=== PATIENT | male | born 1945 | race Caucasian/White ===

== ENCOUNTER → 2016-06-25 10:15 | Outpatient (CLI) | payer MEDICARE ==
[~2016-06-25 10:15] MED LIST: ADVIL200 MG PO; ASPIRIN81 MG PO; CARDIZEM CD240 MG PO; CLARITIN-D1 TAB.SR . PO; PLAVIX75 MG PO
[2016-07-04 09:34] VITALS: BMI 25.1
== END | disposition home or self-care (01) ==
LOC: D.CT 10:15
DX: I65.29 Occlusion and stenosis of unspecified carotid artery (principal)

== ENCOUNTER 2016-07-02 05:00 | Inpatient (IN) | payer MEDICARE ==
[2016-07-01 16:22] LABS: HEMATOCRIT 40.8 % (42.0-54.0); HEMOGLOBIN 14.1 g/dL (13.5-17.5); MCH 31.6 pg (26.0-34.0); MCHC 34.6 g/dL (31.0-37.0); MCV 91.5 fL (80.0-100.0); MEAN PLATELET VOLUME 9.9 fL (7.4-10.4); RBC 4.46 10x6/uL (4.20-6.10); RDW 13.6 % (11.5-14.5); WBC 8.5 10x3/uL (4.8-10.8)
[2016-07-01 16:31] LABS: APTT 29.6 SECONDS (22.8-39.4); INR 1.02 (0.85-1.17); PROTIME 13.2 SECONDS (11.6-15.0)
[2016-07-01 16:37] LABS: APPEARANCE CLEAR (CLEAR); BILIRUBIN NEGATIVE (NEGATIVE); COLOR YELLOW (YELLOW); GLUCOSE NEGATIVE (NEGATIVE); KETONE NEGATIVE (NEGATIVE); LEUKOCYTE ESTERASE NEGATIVE (NEGATIVE); NITRITE NEGATIVE (NEGATIVE); PROTEIN NEGATIVE (NEGATIVE); UROBILINOGEN NORMAL (NORMAL)
[2016-07-01 16:42] LABS: ALBUMIN 3.9 g/dL (3.4-5.0); ANION GAP 8.9 mmol/L (8-16); BILIRUBIN - TOTAL 0.39 mg/dL (0.2-1.3); CALCIUM 9.2 mg/dL (8.5-10.1); CARBON DIOXIDE 31.6 mmol/L (21.0-32.0); CREATININE - SERUM 1.2 mg/dL (0.6-1.3); POTASSIUM - SERUM 3.5 mmol/L (3.5-5.1); PROTEIN - SERUM 7.2 g/dL (6.4-8.2)
[2016-07-02] VITALS (54 sets, daily range): BP systolic 118–187; BP diastolic 52–94; BMI 20.2; BMI 25.1
[~2016-07-02] VITALS: Ht 180.3 cm; Wt 81.6 kg
[~2016-07-02 05:00] MED LIST changes: -ASPIRIN81 MG PO; -CARDIZEM CD240 MG PO; -PLAVIX75 MG PO
--- NOTE | 2016-07-02 14:30 | NUR ---
Is the patient Alert and Oriented? Yes 0 * How many steps to enter\exit or inside your home? 7 0 * PCP DR. MCFARLAND 0 * Pharmacy [facility] IN [place] 0 * Preadmission Environment Home with Family 0 * ADLs Independent 0 * Equipment None 0 * List name and contact numbers for known caregivers / representatives who currently or will assist patient after discharge: SPOUSE: BELLA [phone] 0 * Community resources currently utilized None 0 * Additional services required to return to the preadmission environment? No 0 * Can the patient safely return to the preadmission environment? Yes 0 * Has this patient been hospitalized within the prior 30 days at any hospital? No PATIENT IS AWAKE AND ALERT. HE STATES HE LIVES AT HOME WITH HIS , BELLA. HE STATES SHE WILL BE AVAILABLE TO DRIVE HIM HOME AT DISCHARGE. PATIENT STATES HIS PCP IS DR. MCFARLAND. HE GETS HIS MEDS FROM [facility] IN [place]. HE DENIES USE OF ANY EQUIPMENT AND DENEIS EVER HAVING HOME HEALTH. THERE ARE 7 STEPS TO ENTER HIS HOME. NO DISCHARGE NEEDS IDENTIFIED AT THIS TIME.
--- NOTE | 2016-07-02 19:00 | NUR ---
REPORT RECIEVED, SHIFT ASSESSMENT COMPLETE, PT IS ALERT AND ORIENTED, ON 4L NC WITH 975 O2 SAT. LUNGS CLEAR IN ALL LOBES, S1S2, CM-NSR, INCISION TO RIGHT NECK DRSG IS CDI, AMILCAR DRAIN TO RIGHT CHEST WITH BLOODY DRAINAGE, DRSG CDI, PATENT LEFT SC CVL...SEE FLOW SHEET...PATENT RIGHT LIN, GOOD WAVEFORM, EXTREMETY IS PINK AND WARM , ABDOMEN IS SOFT AND ROUND WITH ACTIVE BS, PATENT F/C WITH YELLOW UOP, NO EDEMA NOTED, ALL PPP, CALL LIGHT IN REACH
--- NOTE | 2016-07-02 21:10 | NUR ---
NO VISITORS AT THIS TIME, PT RESTING COMFORTABLY, WILL CON'T TO MONITOR
--- NOTE | 2016-07-02 23:18 | NUR ---
PT C/O OF 12/08 PAIN AT THIS TIME, ORDERED PAIN MED GIVEN
[2016-07-03] VITALS (85 sets, daily range): BP systolic 123–155; BP diastolic 40–86
--- NOTE | 2016-07-03 01:08 | NUR ---
PT RESTING AT THIS TIME, WILL CON'T TO MONITOR
--- NOTE | 2016-07-03 03:10 | NUR ---
REASSESSMENT COMPLETE, NO CHANGES NOTED, PT AWAKE AT THIS TIME, DENIES ANY NEEDS, WILL CON'T TO MONITOR
--- NOTE | 2016-07-03 05:35 | NUR ---
JANUSZ AT BEDSIDE, AMILCAR DRAIN PULLED. PT TOLERATED WELL
--- NOTE | 2016-07-03 07:00 | NUR ---
REC'D CARE OF PT. A&O X3.
--- NOTE | 2016-07-03 07:24 | NUR ---
INITAIL ASESSMENT COMPLETED PER FLOW SHEET. RIGHT CAROTID INCISION. DRSG CD&I. RIGHT UPPER CHEST DC'D AMILCAR DRAIN SITE. DRSG CD&I. RIGHT RADAIL LIN. LEVELED AND ZEROED. LEFT SCDL WITH CARDIZEM AND CLEVEPREX BOTH BEING TITRATED TO EFFECT. PLASMALYTE AND ZINACEF ALSO INFUSING. NO S/S OF INFECTION. LEFT EYE INPLANT. CRITICORE YAHAIRA. PATENT. SCD'S. MACK. PPP.CLWR. CPOC.
--- NOTE | 2016-07-03 07:43 | NUR ---
HR 57. DECREASED CARDIZEM TO 5 CC PER HOUR.
--- NOTE | 2016-07-03 08:41 | NUR ---
DR. AGUDELO AT BEDSIDE.
--- NOTE | 2016-07-03 09:00 | NUR ---
FAMILY AT BEDSIDE. UPDATED.
--- NOTE | 2016-07-03 09:39 | NUR ---
HR 57. MIMI MANZANO.
--- NOTE | 2016-07-03 10:00 | NUR ---
DC'Doris CEBALLOS WITH TIP INTACT.
--- NOTE | 2016-07-03 10:05 | NUR ---
NO S/S OF BLEEDING AT DC'D LIN SITE.
--- NOTE | 2016-07-03 10:18 | NUR ---
YAHAIRA MATHIS'D FROM BLADDER.
--- NOTE | 2016-07-03 11:01 | NUR ---
AMBULATED WITH PT AND BACK TO CHAIR.
--- NOTE | 2016-07-03 11:11 | NUR ---
REMAINS UP IN CHAIR DENIES NEEDS.
--- NOTE | 2016-07-03 12:40 | NUR ---
BACK TO BED INDEPENDENTLY. REMINDED HIM TO CALL ME BEFORE GETTING OOB.
--- NOTE | 2016-07-03 12:55 | NUR ---
NO CHANGES IN NEURO ASSESSMENTS.
--- NOTE | 2016-07-03 13:25 | NUR ---
AMBULATED 350 FEET AND BACK TO BED VIA CAMRYN WITH PT
--- NOTE | 2016-07-03 15:11 | NUR ---
FAMILY AT BEDSIDE. UPDATED.
--- NOTE | 2016-07-03 18:00 | NUR ---
NO VISITORS. DENIES NEEDS. NO NEURO CHANGES.
--- NOTE | 2016-07-03 19:15 | NUR ---
REPORT RECIEVED, SHIFT ASSESSMENT COMPLETE, PT IS ALERT AND ORIENTED, ON RA WITH 95% O2 SAT. LUNGS CLEAR IN ALL LOBES, S1S2, CM-NSR, PATENT LEFT SC CVL..SEE FLOW SHEET, DRSGS TO LEFT NECK AND LEFT CHEST ARE CDI, ABDOMEN IS FLAT WITH ACTIVE BS, URINAL AND BSC AT BEDSIDE, ALL PPP, WILL CON'T TO MONITOR
--- NOTE | 2016-07-03 21:20 | NUR ---
NO VISITORS AT THIS TIME, WILL CON'T TO MONITOR
--- NOTE | 2016-07-03 23:09 | NUR ---
REASSESSMENT COMPLETE, NO CHANGES NOTED, PT RESTING AT THIS TIME, NO NEEDS NOTED, WILL CON'T TO MONITOR
[2016-07-04] VITALS (53 sets, daily range): BP systolic 134–156; BP diastolic 52–92; Ht 180.3 cm; Wt 81.6 kg
--- NOTE | 2016-07-04 03:12 | NUR ---
REASSESSMENT COMPLETE, NO CHANGES NOTED, PT RESTING AT THIS TIME, WILL CON'T TO MONITOR
--- NOTE | 2016-07-04 05:15 | NUR ---
PT RESTING AT THIS TIME, WILL CON'T TO MONITOR
--- NOTE | 2016-07-04 07:00 | NUR ---
ASSESSMENT COMPLETE PER FLOWSHEET.
--- NOTE | 2016-07-04 15:00 | NUR ---
DR AGUDELO HERE SUHA MARCIAL. WILL CONTINUE TO MONITOR BP.
--- NOTE | 2016-07-04 15:43 | NUR ---
DISCHARGE DONE. NO QUESTIONS NOTED PER . INSTRUCTIONS GIVEN PER BELLA DWYER NURSE ABOUT DRIVING AND INCISION CARE. [facility] [address] PER BELLA.
[2016-07-04] MEDS ORDERED: CARDIZEM CD240 MG PO (16:31)
[2016-07-04] MEDS ORDERED: PLAVIX75 MG PO (16:31)
[2016-07-04] MEDS ORDERED: ASPIRIN81 MG PO (16:32)
--- NOTE | 2016-07-05 13:50 | OP ---
PATIENT NAME: DOLLY DAUGHERTY MEDICAL RECORD: [id number] :47 LOCATION:[facility] D.2305 ADMISSION DATE:07/02/16 SURGEON: SIMONE AGUDELO MD DATE OF OPERATION: 07/02/2016 SURGEON: Simone Agudelo MD ANESTHESIA: General endotracheal, Dr. Blue. OPERATION PERFORMED: Right carotid endarterectomy with patch angioplasty. PREOPERATIVE DIAGNOSIS: Severe right internal carotid artery stenosis. POSTOPERATIVE DIAGNOSIS: Severe right internal carotid artery stenosis. INDICATION FOR OPERATION: Severe right internal carotid artery stenosis. FINDINGS AT OPERATION: Severe right internal carotid artery stenosis area greater than 90% and there were no EEG changes with clamping or unclamping of the carotid artery. ESTIMATED BLOOD LOSS: Less than 50 mL. DESCRIPTION OF PROCEDURE: After informed consent, adequate preoperative medication and evaluation, the patient was brought to the operating room, placed on the table in the supine position. After induction of general endotracheal anesthesia and application of appropriate monitoring devices, the right neck and chest prepped and draped in a sterile field, utilizing Betadine scrub, alcohol, and Betadine solution. A Betadine-impregnated drape was also used. An oblique incision was made in the skin crease. Dissection carried down the fascia. Hemostasis was maintained with electrocautery. Facial vein was identified and divided. Utilizing sharp dissection, the common carotid, internal and external carotid arteries were dissected free from surrounding structures, protecting the neurological structures. The patient was given a calculated dose of heparin, after 3 minutes, clamps were applied. After 2 minutes, no EEG changes. The arteriotomy was made and extended with Bergeron scissors. Artery underwent endarterectomy sharply. Artery underwent extensive debridement and irrigation. Utilizing a CorMatrix vascular patch and running 7-0 Prolene suture, the arteriotomy was closed with patch angioplasty technique. All maneuvers to remove trapped air were performed. The clamps were removed sequentially. There were no EEG changes. The patient was given a calculated dose of protamine to reverse the heparin. Hemostasis was achieved, and a #7 Gautam-Nevarez drain was left in the depths of wound and brought through the base of the neck. Neck was again irrigated. Instrument count and sponge count were correct times 2. Neck was closed in layers utilizing 3-0 Vicryl on the platysma, 5-0 subcuticular Monocryl on the skin. Sterile dressings were applied. The patient tolerated the procedure well and transferred to ICU in stable condition. TRANSINT:[id number] Voice Confirmation ID: [id number] DOCUMENT ID: [id number] OPERATIVE REPORT [id number] DOLLY DAUGHERTY EDWARD MD at 1350 CC: [id number] DICTATION DATE: 07/02/16 1004 BRANCH OFFICE ADMINISTRATOR: 07/02/16 1350 DIS IN 07/04/16 [place] [id number]
--- NOTE | 2016-07-05 13:50 | HP ---
PATIENT: DOLLY DAUGHERTY MEDICAL RECORD: [id number] ACCOUNT: [id number] LOCATION:[facility] D2305 : [birth year] ADMISSION DATE: 07/02/16 HISTORY AND PHYSICAL EXAMINATION NameDOLLY DAUGHERTY (70yo, M) ID# [id number]. Date/Time07/01/2016 01:56VFKEN16 1945Service Dept.NPP_[facility] ClinicProviderEDKELTON NARVAEZ MDInsuranceMed Primary: [place]ICARE-[place] (MEDICARE) Insurance # : [id number] Employer Name : RETIRED Prescription: ORX - Member is eligible. Chief Complaint Carotid stenosis CTA neck Vitals BP:160/80 sitting R arm 07/01/2016 12:41 pm 180/90 sitting L arm 07/01/2016 12:41 pmHR:88irreg 07/01/2016 12:43 pmHt:5 ft 11 in 07/01/2016 12:41 pmWt:145 lbs 07/01/2016 12:41 pmBMI:20.2 07/01/2016 12:41 pmAllergies Reviewed Allergies CODEINEMedications Reviewed Medications Claritin-D 12 Hour 5 mg-120 mg tablet,extended release TAKE 1 TABLET BY MOUTH EVERY 12 HOURS QWJJSO48/12/17 filledsurescriptssulfamethoxazole 800 mg-trimethoprim 160 mg tablet TAKE 1 TABLET BY MOUTH EVERY 12 HOURS FOR 10 DAYS07/20/15 filledPRESCRIPTION SOLUTIONSProblems Reviewed Problems Carotid artery stenosis - Onset: 07/01/2016 Family History Discussed Family History Social History Discussed Social History Cardiology Smoking Status: Current every day smoker Smoker (1/2 PPD) High Cholesterol: Y High blood pressure: N Diabetes: N Surgical History Reviewed Surgical History Other - Right rotator cuff Other - Right hand carpal tunnel Other - heria repair bilateral inguinal Other - bilateral retinal detachment PROTHESIS left ey Other - appendectomy Past Medical History Discussed Past Medical History Blurred Vision: Y - PROTHESIS left eye Carotid Stenosis: Y Documents for Discussion N/A HISTORY AND PHYSICAL [id number] DOLLY DAUGHERTY Screening None recorded. HPI Cerebral Vascular Disease Reported by patient. Quality: weakness; numbess ("both legs cramp."); tingling; dizziness Alleviating Factors: position change severe bilateral carotid artery stenosis ROS Patient reports exercise intolerance but reports no fever, no night sweats, no significant weight gain, and no significant weight loss. He reports no dry eyes, no irritation, and no vision change; blind 0s. He reports dizziness but reports no loss of consciousness, no weakness, no numbness, no seizures, and no headaches. He reports no difficulty hearing and no ear pain. He rep orts no frequent nosebleeds and no nose/sinus problems. He reports no sore throat, no bleeding gums, no snoring, no dry mouth, no mouth ulcers, no oral abnormalities, and no teeth problems. He reports no jugular vein distension and no swollen glands. He r e ports no chest pain, no arm pain on exertion, no shortness of breath when walking, no shortness of breath when lying down, no palpitations, and no known heart murmur. He reports no cough, no wheezing, no shortness of breath, and no coughing up blood. He r e ports no abdominal pain, no vomiting, normal appetite, no diarrhea, not vomiting blood, no nausea, and no constipation. He reports no incontinence, no difficulty urinating, no hematuria, and no increased frequency. He reports no muscle aches, no muscle we a kness, no arthralgias/joint pain, no back pain, and no swelling in the extremities. He reports no abnormal mole, no jaundice, and no rashes. He reports no depression, no sleep disturbances, feeling safe in relationship, and no alcohol abuse. He reports no fatigue. He reports no swollen glands and no bruising. He reports no runny nose, no sinus pressure, no itching, no hives, and no frequent sneezing. ROS as noted in the HPI Physical Exam Patient is a 70-year-old male. Constitutional: General Appearance healthy-appearing and thin. Level of Distress NAD. Ambulation ambulating normally. Cardiovascular: Apical Impulse not displaced or no thrill. Heart Auscultation normal s1 and s2; no murmurs, rubs, or gallops; and RRR. Arterial Pulses no abdominal aorta brui ts, femoral bruits, or popliteal bruits and 2+ bilateral, carotid 2+ bilateral, femoral 2+ bilateral, popliteal 2+ bilateral, and dorsalis pedis 2+ bilateral. Edema no edema or varicosities. Lungs: Repiratory Effort no dyspnea. Percussion no dullness or flatness and hyperresonance . Auscultation no wheezing, rhonchi, or rales / crackles and breathing sounds normal, good air movement, and CTA except as noted. Abdomen: Bowl Sounds normal. Inspection and Palpation no tenderness, guarding, masses, or rebound t enderness and soft and non-distended. Liver non-tender and no hepatomegaly. Spleen non-tender and no splenomegaly. Hernia none palpable. Ears, Nose, Throat: Hearing blind OS. Musculoskeletal System: Gait And Stance normal gait and stance. Digits and Nails normal nails and no cyanosis. Neurologic: Cranial Nerves grossly intact. Reflexes DTRs 2+ bilaterally throughout. HISTORY AND PHYSICAL [id number] DAUGHERTYDOLLY VAIBHAV Sensation grossly intact. Lymph Nodes: Lymph Nodes no cervical LAD, supraclavicular LAD, axillary LAD, or inguinal LAD. Eyes: Lids and Conjunctivae no discharge or pallor and injected; prosthesis left. Pupils anisocoria; OS prosthesis. Cornea grossly intact. EOM EOMI. Lens clear. Sclerae non-icteric. Neck: Neck no masses or enlarged lymph nodes and supple, trachea midline, and carotid bruits (bilateral carotid bruits right high pitched). Thyroid no enlargement or nodules and non-tender. Skin: Inspection and Palpation no rash, lesions, ulcers, jaundice, or abnormal nevi. Assessment / Plan severe bilateral carotid artery stenosis 1. Bilateral carotid artery stenosis I65.23: Occlusion and stenosis of bilateral carotid arteries Discussion Notes the patient has high-grade symptomatic right carotid artery stenosis. I have discussed his disease process with him and his in detail a s well as the alternative methods of treatment. We discussed right carotid endarterectomy and the expected benefits and risk which included bleeding, infection, stroke, loss of limb, and . He understands all of the above and wishes to proceed with pl anned procedure tomorrow Return to Office to see Darnell Narvaez MD at [facility] on or around 07/02/2016 Darnell Narvaez MD for Surgery at [facility]SURGERY SCHEDULE on 07/02/2016 at 07:30 AM DARNELL NARVAEZ MD at 2427 CC: [id number] DICTATION DATE: 07/01/16 1310 [employer]IGH SCHOOL VICE PRINCIPAL: DM 07/01/16 1445 DIS IN 07/04/16 [facility] [address] [place] [address]
--- NOTE | 2016-08-02 10:49 | DS ---
PATIENT:DOLLY LUCERO :47 MEDICAL RECORD: [id number] DISCHARGE SUMMARY ADMISSION DATE: 07/02/16 DISCHARGE DATE: 07/04/16 DISCHARGE DIAGNOSES: 1. Severe bilateral carotid stenosis. 2. Hypercholesterolemia. 3. Essential hypertension. 4. Nicotine dependence. DISCHARGE MEDICATIONS: Please see medical reconciliation form. DISPOSITION: The patient discharged home, has appointment to see Dr. Narvaez in 2-3 weeks. HOSPITAL COURSE: Mr. Lucero is admitted to the hospital and underwent right carotid endarterectomy with patchy angioplasty. Postoperatively, he did well, had no problems with bleeding, infection or arrhythmias. On his final postoperative day, his incisions are healing well. He is neurologically intact. He has been given discharge instructions and wound precautions and will be seen as above. TRANSINT:[id number] Voice Confirmation ID: [id number] DOCUMENT ID: [id number] SIMONE NARVAEZ MD at 1049 CC: [id number] DICTATION DATE: 07/26/16 1315 FLAT BREAKDOWN PROCESSOR: 07/26/16 1359 DIS IN 07/04/16 [place] [id number] [place] [address]
== END 2016-07-04 17:52 | disposition home or self-care (01) | DRG 39 ==
LOC: D.ICU 05:00 → D.SDCHOLD 05:00 → D.ICU 09:03
PROVIDERS: ADMIT Internal Medicine Cardiovascular Disease
PROC: 03UK0JZ Supplement Right Internal Carotid Artery with Synthetic Substitute, Open Approach (ICD-10-PCS; 2016-07-02)
PROC: 03CK0ZZ Extirpation of Matter from Right Internal Carotid Artery, Open Approach (ICD-10-PCS; principal; 2016-07-02 07:30)
DX: I65.23 Occlusion and stenosis of bilateral carotid arteries (principal); E78.00 Pure hypercholesterolemia, unspecified; I10 Essential (primary) hypertension; F17.200 Nicotine dependence, unspecified, uncomplicated

== ENCOUNTER 2016-09-29 05:06 | Inpatient (IN) | payer MEDICARE ==
[2016-09-25 13:26] LABS: HEMATOCRIT 40.5 % (42.0-54.0); HEMOGLOBIN 13.7 g/dL (13.5-17.5); MCH 31.4 pg (26.0-34.0); MCHC 33.8 g/dL (31.0-37.0); MCV 92.9 fL (80.0-100.0); MEAN PLATELET VOLUME 9.9 fL (7.4-10.4); RBC 4.36 10x6/uL (4.20-6.10); RDW 14.1 % (11.5-14.5); WBC 7.6 10x3/uL (4.8-10.8)
[2016-09-25 13:34] LABS: APPEARANCE HAZY (CLEAR); COLOR DK YELLOW (YELLOW); SPECIFIC GRAVITY 1.015 (1.005-1.020)
[2016-09-25 13:35] LABS: BILIRUBIN NEGATIVE (NEGATIVE); GLUCOSE 50 mg/dL (NEGATIVE); KETONE NEGATIVE (NEGATIVE); LEUKOCYTE ESTERASE TRACE (NEGATIVE); NITRITE NEGATIVE (NEGATIVE); PROTEIN TRACE mg/dL (NEGATIVE); UROBILINOGEN NORMAL (NORMAL)
[2016-09-25 13:36] LABS: APTT 30.2 SECONDS (22.8-39.4)
[2016-09-25 13:36] LABS: BACTERIA FEW /hpf (NONE SEEN); EPITHELIAL CELLS RARE /hpf (0-5); RED CELLS - URINE 0-5 /hpf (0-5); WHITE CELLS - URINE 0-5 /hpf (0-5)
[2016-09-25 13:39] LABS: HYALINE CAST OCC /lpf (NONE SEEN)
[2016-09-25 13:44] LABS: ALBUMIN 3.7 g/dL (3.4-5.0); ANION GAP 10.6 mmol/L (8-16); BILIRUBIN - TOTAL 0.3 mg/dL (0.2-1.3); CARBON DIOXIDE 29.8 mmol/L (21.0-32.0); CREATININE - SERUM 1.5 mg/dL (0.6-1.3); POTASSIUM - SERUM 3.4 mmol/L (3.5-5.1); PROTEIN - SERUM 7.1 g/dL (6.4-8.2)
--- NOTE | 2016-09-25 18:31 | HP ---
PATIENT: DOLLY DAUGHERTY MEDICAL RECORD: [id number] ACCOUNT: [id number] LOCATION:[facility] : 47 ADMISSION DATE: 09/29/16 HISTORY AND PHYSICAL EXAMINATION NameDOLLY DAUGHERTY (70yo, M) ID# [id number]. Date/Time09/25/2016 09:64OWTYV49/31/194Service Dept.NPP_[place] [facility] ClinicProviderEDKELTON AGUDELO MDInsuranceMed Primary: [place]ICARE-[place] (MEDICARE) Insurance # : [id number] Employer Name : RETIRED Prescription: ORX - Member is eligible. Chief Complaint Post op Followup: Carotid artery stenosis s/p RCEA 07/02/16 RTC to schedule LCEA Vitals BP:168/84 sitting R arm 09/25/2016 10:39 amBP Cuff Size:adult 09/25/2016 10:39 amHR:80,irreg 09/25/2016 10:39 amHt:5 ft 11 in 09/25/2016 10:28 amWt:145 lbs 09/25/2016 10:39 amNotes:here to schedule LCEA 09/25/2016 10:39 amBMI:20.2 09/25/2016 10:39 amAllergies Reviewed Allergies CODEINEMedications Reviewed Medications aspirin 81 mg chewable tablet TK 1 T PO D.07/04/16 filledsurescriptsCartia XT 240 mg capsule,extended release TK 1 C PO D.07/30/16 filledPRESCRIPTION SOLUTIONSClaritin-D 12 Hour 5 mg-120 mg tablet,extended release TAKE 1 TABLET BY MOUTH EVERY 12 HOURS QYPQMT86/12/17 filledsurescriptsclopidogrel 75 mg tablet TK 1 T PO D.07/30/16 filledPRESCRIPTION SOLUTIONSsulfamethoxazole 800 mg-trimethoprim 160 mg tablet TAKE 1 TABLET BY MOUTH EVERY 12 HOURS FOR 10 DAYS07/20/15 filledPRESCRIPTION SOLUTIONS Some medications listed in Document: #[id number] could not be added to this patient's chart. Please review this document and add these medications to the patient's chart manually as needed. Vaccines Reviewed Vaccines Some vaccines listed in Document: #[id number] could not be added to this patient's chart. Please review this document and add these vaccines to the patient's chart manually as needed. Problems Reviewed Problems Carotid artery stenosis - Onset: 07/01/2016 Family History Discussed Family History Social History Discussed Social History Cardiology Smoking Status: Current every day smoker Smoker (1/2 PPD) HISTORY AND PHYSICAL [id number] DATDOLLY DELUCA High Cholesterol: Y High blood pressure: N Diabetes: N Surgical History Reviewed Surgical History Other - Right rotator cuff Other - Right hand carpal tunnel Other - heria repair bilateral inguinal Other - bilateral retinal detachment PROTHESIS left ey Other - appendectomy Carotid Endarterectomy - 07/02/2016 - Right Past Medical History Discussed Past Medical History Blurred Vision: Y - PROTHESIS left eye Carotid Stenosis: Y Documents for Discussion N/A Screening None recorded. HPI Cerebral Vascular Disease Reported by patient. Associated Symptoms: no headache; no nausea; no vomiting; no tinnitus; no difficulty speaking; no lethargy; no fever; no chills; no palpitations; no syncope; no loss of consciousness Notes: no issues, needs to schedule carotid on left left carotid artery disease ROS Patient reports exercise intolerance but reports no fever, no night sweats, no significant weight gain, and no significant weight loss. He reports no dry eyes, no irritation, and no vision change; blind 0s. He reports dizziness but reports no loss of consciousness, no weakness, no num bness, no seizures, and no headaches. He reports no difficulty hearing and no ear pain. He reports no frequent nosebleeds and no nose/sinus problems. He reports no sore throat, no bleeding gums, no snoring, no dry mouth, no mouth ulcers, no oral abnormali t ies, and no teeth problems. He reports no jugular vein distension and no swollen glands. He reports no chest pain, no arm pain on exertion, no shortness of breath when walking, no shortness of breath when lying down, no palpitations, and no known heart mu r mur. He reports no cough, no wheezing, no shortness of breath, and no coughing up blood. He reports no abdominal pain, no vomiting, normal appetite, no diarrhea, not vomiting blood, no nausea, and no constipation. He reports no incontinence, no difficulty urinating, no hematuria, and no increased frequency. He reports no muscle aches, no muscle weakness, no arthralgias/joint pain, no back pain, and no swelling in the extremities. He reports no abnormal mole, no jaundice, and no rashes. He reports no depres shamar, no sleep disturbances, feeling safe in relationship, and no alcohol abuse. He reports no fatigue. He reports no swollen glands and no bruising. He reports no runny nose, no sinus pressure, no itching, no hives, and no frequent sneezing. ROS as noted in the HPI Physical Exam Patient is a 70-year-old male. Constitutional: General Appearance healthy-appearing and thin. Level of Distress NAD. Ambulation ambulating normally. HISTORY AND PHYSICAL [id number] DOLLY DAUGHERTY Cardiovascular: Apical Impulse not displaced or no thrill. Heart Auscultation normal s1 and s2; no murmurs, rubs, or gallops; and RRR. Arterial Pulses no abdominal aorta bruits, femoral bruits, or popliteal bruits and 2+ bilateral, carotid 2+ bilateral, femoral 2+ bilateral, popliteal 2+ bilateral, and dorsalis p laura 2+ bilateral. Edema no edema or varicosities. Lungs: Repiratory Effort no dyspnea. Percussion no dullness or flatness and hyperresonance . Auscultation no wheezing, rhonchi, or rales / crackles and breathing sounds normal, good air movement, and CTA except as noted. Abdomen: Bowl Sounds normal. Inspection and Palpation no tenderness, guarding, masses, or rebound tenderness and soft and non-distended. Liver non-tender and no hepatomegaly. Spleen non-tender and no splenomegaly. Hernia none palpable. Ears, Nose, Throat: Hearing blind OS. Musculoskeletal System: Gait And Stance normal gait and stance. Digits and Nails normal nails and no cyanosis. Neurologic: Cranial Nerves grossly intact. Reflexes DTRs 2+ bilaterally throughout. Sensation grossly intact. Lymph Nodes: Lymph Nodes no cervical LAD, supraclavicular LAD, axillary LAD, or inguinal LAD. Eyes: Lids and Conjunctivae no discharge or pallor and injected; prosthesis left. Pupils anisocoria; OS prosthesis. Cornea grossly intact. EOM EOMI. Lens clear. Sclerae non-icteric. Neck: Neck no masses or enlarged lymph nodes and supple, trachea midline, and carotid bruits (left carotid bruits). Thyroid no enlargement or nodules and non-tender. Skin: Inspection and Palpation no rash, lesions, ulcers, jaundice, or abnormal nevi. progressing well status post right carotid endarterectomy He already feels better post Assessment / Plan ulcerative plaque moderate stenosis left internal carotid artery symptomatic 1. Carotid artery stenosis I65.29: Occlusion and stenosis of unspecified carotid artery CAROTID STENOSIS: CARE INSTRUCTIONS Discussion Notes have discussed the patient's disease process with him and his in detail as well as the alternative methods of treatment. We discussed left carotid endarterectomy including the expected benefits and risk which included bleeding ,infection ,stroke , and . He understands all of the above and wishes to proceed with planned procedure. HISTORY AND PHYSICAL [id number] DOLLY DAUGHERTY EDWARD MD at 1831 CC: [id number] DICTATION DATE: 09/25/16 0945 SUPERVISOR SEWER MAINTENANCE: MARITA 09/25/16 1536 PRE IN [facility] [address] [place] [address]
[~2016-09-29] VITALS: Ht 180.3 cm; Wt 68.2 kg
[2016-09-29] VITALS (61 sets, daily range): BP systolic 106–178; BP diastolic 45–90; Ht 180.3 cm; Wt 68.2 kg
--- NOTE | ~2016-09-29 | OP ---
PATIENT NAME: DOLLY DAUGHERTY MEDICAL RECORD: [id number] :46 LOCATION:[facility] ADMISSION DATE:09/29/16 SURGEON: DARNELL AGUDELO MD DATE OF OPERATION: 09/29/2016 SURGEON: Darnell Agudelo MD ANESTHESIA: General endotracheal, Dr. Do. OPERATION PERFORMED: Left carotid endarterectomy with patch angioplasty. PREOPERATIVE DIAGNOSIS: Severe left internal carotid artery stenosis. POSTOPERATIVE DIAGNOSIS: Severe left internal carotid artery stenosis. INDICATION FOR OPERATION: Severe left internal carotid artery stenosis. FINDINGS AT OPERATION: Severe left internal carotid artery stenosis with ruptured plaque. ESTIMATED BLOOD LOSS: Cell Saver was used. FINDINGS OF THE OPERATION: There were no EEG changes with clamping or unclamping of the carotid artery. DESCRIPTION OF PROCEDURE: After informed consent, adequate preoperative medication evaluation, the patient was brought to the operating room, placed on the table in the supine position. After induction of general endotracheal anesthesia and application of appropriate monitoring devices, the left neck and chest were prepped and draped in a sterile field, utilizing Betadine scrub, alcohol, and Betadine solution. A Betadine-impregnated drape was also used. An oblique incision was made in the skin crease. Dissection carried down the fascia. Hemostasis maintained with electrocautery. Facial vein was identified and divided. Utilizing sharp dissection, the common carotid, internal and external carotid arteries were dissected free from surrounding structures, protecting the neurological structures. The patient was given a calculated dose of heparin, after 3 minutes, clamps were applied. After 2 minutes, no EEG changes. The arteriotomy was made and extended with Bergeron scissors. Artery underwent endarterectomy sharply. Artery underwent extensive debridement and irrigation. Utilizing a vascular patch, a running 7-0 Prolene suture, the arteriotomy was closed with patch angioplasty technique. All maneuvers to remove trapped air were performed. The clamps were removed sequentially. There were no EEG changes. The patient was given a calculated dose of protamine to reverse the heparin. Hemostasis was assured. A #7 Gautam-Nevarez drain was left in the depth of wound and brought through the base of the neck. Neck was again irrigated. Instrument count and sponge count were correct times 2. Neck was closed in layers utilizing 3-0 Vicryl on the platysma, 5-0 subcuticular Monocryl on the skin. Sterile dressings were applied. The patient tolerated the procedure well and was transferred to the ICU in satisfactory condition. TRANSINT:[id number] Voice Confirmation ID: [id number] DOCUMENT ID: [id number] OPERATIVE REPORT [id number] DOLLY DAUGHERTY EDWARD MD CC: [id number] DICTATION DATE: 09/29/16 1021 EUCLID OPERATOR: 09/29/16 1123 ADM IN [place] [id number] [place] [address]
[~2016-09-29 05:06] MED LIST changes: +ASPIRIN81 MG PO; +CARDIZEM CD240 MG PO; +PLAVIX75 MG PO
--- NOTE | 2016-09-29 10:38 | NUR ---
REC'D PT FROM OR, RIGHT RADIAL A-LINE, RIGHT SUBCLAVIAN CVL WITH FLUIDS INFUSING. ALL LINES ZERO'ED, LEFT CAROTID, AMILCAR DRAIN COMPRESS, ICE PACK APPLIED TO LEFT SIDE OF NECK, WILL CONTINUE TO MONITOR PT.
--- NOTE | 2016-09-29 11:15 | NUR ---
PTS AT THE BEDSIDE, ALL QUESTIONS ANSWERED, VSS. PT REQUESTING WATER, WILL TRY ICE CHIPS, PT TOLERATED WELL. WILL CONTINUE TO MONITOR PT.
--- NOTE | 2016-09-29 13:33 | NUR ---
CONTACTED DR. MONDRAGON OF CONSULT, WILL BE THERE LATER
--- NOTE | 2016-09-29 15:00 | NUR ---
PT RESTING WITH EYES CLOSED, NO C/O PAIN, VSS, REASSESSMENT COMPLETED, SEE FLOW SHEET. ROOM FREE OF CLUTTER, CALL LIGHT IN REACH, WILL CONTINUE TO MONITOR PT.
--- NOTE | 2016-09-29 18:11 | NUR ---
PT C/O NECK PAIN, ULTRAM GIVEN, WILL CONTINUE TO MONITOR PT.
--- NOTE | 2016-09-29 19:00 | NUR ---
REPORT RECEIVED AND ASSESSMENT COMPLETED. SEE FLOWSHEET FOR FULL DETAILS. PT IS ALERT AND ORIENTED. PRESSURE IN 120'S SYSTOLIC. ON CLEVIPREX AT 20/HR ALL PULSES PALPABLE. NO SIGNS OF SWELLING OR HEMATOMA. WILL CONTINUE TO MONITOR CLOSELY THROUGHOUT SHIFT.
--- NOTE | 2016-09-29 21:00 | NUR ---
NO CHANGES IN PT STATUS AT THIS TIME. WILL CONTINUE TO MONITOR FOR CHANGES AND TITRATE CLEVIPREX NEEDED.
--- NOTE | 2016-09-29 23:00 | NUR ---
REASSESSMENT COMPLETED. SEE FLOWSHEET FOR FULL DETAILS. CLEVIPREX NOW AT 22/HR. NO OTHER CHANGES AT THIS TIME. PT GIVEN NEW ICE PACK FOR COMFORT.
[2016-09-30] VITALS (102 sets, daily range): BP systolic 100–140; BP diastolic 41–85
--- NOTE | 2016-09-30 01:00 | NUR ---
CLEVIPREX NOW AT 21/HR PAIN MED GIVEN FOR PT STIFFNESS AND STINING PAIN. NO SIGNS OF SWELLING OR HEMATOMA. WILL MONITOR.
--- NOTE | 2016-09-30 03:33 | NUR ---
REASSESSMENT COMPLETED. SEE FLOWSHEET FOR FULL DETAILS. NO CHANGES IN STATUS AT THIS TIME. LOW OUTPUT TO AMILCAR DRAIN. PATIENT STILL ON CLEVIPREX AT 21/HR. VSS. WILL MONITOR.
--- NOTE | 2016-09-30 05:00 | NUR ---
NO CHANGES IN STATUS AT THIS TIME. VSS. WILL CONTINUE TO MONITOR
[2016-09-30 06:22] LABS: HEMATOCRIT 35.4 % (42.0-54.0); MCH 31.3 pg (26.0-34.0); MCHC 33.9 g/dL (31.0-37.0); MCV 92.2 fL (80.0-100.0); MEAN PLATELET VOLUME 10.1 fL (7.4-10.4); RBC 3.84 10x6/uL (4.20-6.10); RDW 13.9 % (11.5-14.5); WBC 12.6 10x3/uL (4.8-10.8)
--- NOTE | 2016-09-30 07:00 | NUR ---
PT REPORT REC'D, PT CARE ASSUMED.PT RESTING WITH EYES CLOSED, NO C/O PAIN, NO SIGNS OF DISTRESS. VSS, 2LN. RIGHT RADIAL A-LINE, GOOD WAVE FORM, EXTREMITY PINK AND WARM, WRIST PROTECTOR. RIGHT SUB CLAVIAN CVL WITH FLUIDS INFUSING, DRESSING CDI, SEE IV FLOW SHEET. SYED CATHTER FREE OF KINKS WITH CLEAR YELLOW URINE RETURN TO GRAVITY. SHIFT ASSESSMENT COMPLETED, SEE FLOW SHEET. ROOM FREE OF CLUTTER, CALL LIGHT IN REACH, WILL CONTINUE TO MONITOR PT.
[2016-09-30 07:02] LABS: ALBUMIN 2.8 g/dL (3.4-5.0); ANION GAP 12.6 mmol/L (8-16); BILIRUBIN - TOTAL 0.3 mg/dL (0.2-1.3); CALCIUM 8.1 mg/dL (8.5-10.1); CARBON DIOXIDE 25.7 mmol/L (21.0-32.0); CREATININE - SERUM 1.4 mg/dL (0.6-1.3); POTASSIUM - SERUM 3.3 mmol/L (3.5-5.1); PROTEIN - SERUM 5.8 g/dL (6.4-8.2)
--- NOTE | 2016-09-30 10:17 | NUR ---
Is the patient Alert and Oriented? Yes 0 * How many steps to enter\exit or inside your home? 5/RAIL 0 * PCP DR. MCFARLAND 0 * Pharmacy [facility] ON [address] * Preadmission Environment Home with Family 0 * ADLs Independent 0 * Equipment None 0 * List name and contact numbers for known caregivers / representatives who currently or will assist patient after discharge: SPOUSE: HEIDY [phone] * Community resources currently utilized None 0 * Additional services required to return to the preadmission environment? No 0 * Can the patient safely return to the preadmission environment? Yes 0 * Has this patient been hospitalized within the prior 30 days at any hospital? No PATIENT IS AWAKE AND ALERT. HE STATES HE LIVES AT HOME WITH HIS , HEIDY. SHE WILL BE AVAILABLE TO DRIVE HIM HOME AT DISCHARGE. PATIENT STATES HIS PCP IS DR. MCFARLAND. HE GETS HIS MEDICATION FROM [facility] ON [address] IN [place]. PATIENT DENIES USE OF ANY EQUIPMENT. HE DENIES EVER HAVING HOME HEALTH CARE. PATIENT STATES THERE ARE 5 STEPS TO ENTER HIS HOME WITH A RAIL. NO DISCHARGE NEEDS IDENTIFIED AT THIS TIME.
--- NOTE | 2016-09-30 11:00 | NUR ---
PT SITTING UP IN BED, NO C/O PAIN, VSS. REASESSMENT COMPLETED, SEE FLOW SHEET. ROOM FREE OF CLUTTER, CALL LIGHT IN REACH, WILL CONTINUE TO MONITOR PT.
--- NOTE | 2016-09-30 12:12 | NUR ---
SYED CATHETER DC'ED PER ORDER, BEDSIDE URINAL NEEDED. DC'ED RIGHT RADIAL A-LINE, PRESSURE APPLIED, TEGADERM APPLIED, WILL CONTINUE TO MONITOR PT.
--- NOTE | 2016-09-30 14:25 | NUR ---
PT AMBULATED WITH PHYSICAL THERAPY, PT AMBULATED APPROX 350 FT. PT TOLERATED WELL, WILL CONTINUE TO MONITOR PT.
--- NOTE | 2016-09-30 15:00 | NUR ---
PT SITTING UP IN CHAIR, NO C/O PAIN, VSS. REASSESSMENT COMPLETED, SEE FLOW SHEET. ROOM FREE OF CLUTTER, CALL LIGHT IN REACH. WILL CONTINUE TO MONITOR PT.
--- NOTE | 2016-09-30 18:13 | NUR ---
PT FAMILY AT THE BEDSIDE, ALL QUESTIONS ANSWERED, VSS, WILL CONTINUE TO MONITOR PT.
--- NOTE | 2016-09-30 19:00 | NUR ---
REPORT RECEIVED AND ASSESSMENT COMPLETED. PT NO LONGER ON ANY DRIPS. SEE FLOWSHEET FOR FULL DETAILS. VSS. WILL MONITOR.
--- NOTE | 2016-09-30 21:00 | NUR ---
NO CHANGES IN STATUS AT THIS TIME. VSS. WILL MONITOR
--- NOTE | 2016-09-30 23:00 | NUR ---
REASSESSMENT COMPLETED. SEE FLOWSHEET FOR FULL DETAILS. VSS. WILL MONITOR
[2016-10-01] VITALS (7 sets, daily range): BP systolic 131–165; BP diastolic 71–95
--- NOTE | 2016-10-01 01:00 | NUR ---
NO CHANGES IN STATUS AT THIS TIME. PT RESTING IN ROOM. BEDRAILS UP X 2. IN LOW POSITION. WILL MONITOR FOR CHANGES.
--- NOTE | 2016-10-01 03:00 | NUR ---
REASSESSMENT COMPLETED. SEE FLOWSHEET FOR FULL DETAILS.VSS WILL MONITOR FOR CHANGES
--- NOTE | 2016-10-01 05:00 | NUR ---
NO CHANGES IN STATUS AT THIS TIME. VSS.WILL MONITOR
--- NOTE | 2016-10-01 07:30 | NUR ---
SHIFT ASSESSMENT VIA FLOWSHEET, SEE FOR DETAILS. VSS, SR ON CM.
[2016-10-01] MEDS ORDERED: ULTRAM50 MG PO (08:09)
--- NOTE | 2016-10-01 10:30 | NUR ---
PT D/C TEACHING PROVIDED, PT VERBALIZES UNDERSTANDING. CVL D/C'D WITH CATH TIP INTACT.
--- NOTE | 2016-10-01 10:50 | NUR ---
PT TO FRONT ENTRANCE VIA WHEELCHAIR.
--- NOTE | 2016-10-01 11:04 | NUR ---
CM REASSESSMENT NOTE: PATIENT DISCHARGED HOME TODAY - DRIVING.
== END 2016-10-01 10:50 | disposition home or self-care (01) | DRG 39 ==
LOC: D.CVICU 05:06 → D.SDCHOLD 05:06 → D.CVICU 09:36
PROVIDERS: ADMIT Internal Medicine Cardiovascular Disease
PROC: 03UL0JZ Supplement Left Internal Carotid Artery with Synthetic Substitute, Open Approach (ICD-10-PCS; 2016-09-29)
PROC: 03CL0ZZ Extirpation of Matter from Left Internal Carotid Artery, Open Approach (ICD-10-PCS; principal; 2016-09-29 07:30)
DX: I65.22 Occlusion and stenosis of left carotid artery (principal)

== ENCOUNTER 2016-12-13 09:38 | Emergency (ER) | payer OTHER ==
[2016-09-29 10:51] VITALS: BMI 23.2
[~2016-12-13 09:38] MED LIST changes: +ULTRAM50 MG PO
[2016-12-13 10:19] LABS: BASOPHILS 0.4 % (0-2); EOSINOPHILS 3.9 % (0-7); HEMATOCRIT 40.6 % (42.0-54.0); HEMOGLOBIN 13.8 g/dL (13.5-17.5); IMMATURE GRANULOCYTES 0.4 % (0-5); LYMPHOCYTES 30.4 % (15-50); MCH 30.9 pg (26.0-34.0); MCV 90.8 fL (80.0-100.0); MEAN PLATELET VOLUME 9.5 fL (7.4-10.4); MONOCYTES 10.1 % (2-11); NEUTROPHILS 54.8 % (40-80); PLATELET COUNT 273 10x3/uL (130-400); RBC 4.47 10x6/uL (4.20-6.10); RDW 14.3 % (11.5-14.5); WBC 5.1 10x3/uL (4.8-10.8)
[2016-12-13 10:32] LABS: ALBUMIN 3.7 g/dL (3.4-5.0); ALKALINE PHOSPHATASE 85 U/L (46-116); ALT (SGPT) 17 U/L (10-68); BILIRUBIN - TOTAL 0.42 mg/dL (0.2-1.3); CALC OSMOLALITY 276 mosm/kg (275-300); CALCIUM 9.3 mg/dL (8.5-10.1); CARBON DIOXIDE 28.3 mmol/L (21.0-32.0); CHLORIDE - SERUM 100 mmol/L (98-107); CREATININE - SERUM 1.9 mg/dL (0.6-1.3); GLUCOSE 102 mg/dL (74-106); POTASSIUM - SERUM 3.4 mmol/L (3.5-5.1); PROTEIN - SERUM 7.3 g/dL (6.4-8.2); SODIUM 137 mmol/L (136-145); UREA NITROGEN 22 mg/dL (7-18); eGFR NON AFRICAN AMERICAN 37 mL/min (90-120)
[2016-12-13 10:39] LABS: APPEARANCE CLEAR (CLEAR); BILIRUBIN NEGATIVE (NEGATIVE); COLOR YELLOW (YELLOW); GLUCOSE NEGATIVE (NEGATIVE); KETONE NEGATIVE (NEGATIVE); LEUKOCYTE ESTERASE NEGATIVE (NEGATIVE); NITRITE NEGATIVE (NEGATIVE); PROTEIN NEGATIVE (NEGATIVE); SPECIFIC GRAVITY 1.015 (1.005-1.020); UROBILINOGEN NORMAL (NORMAL)
[2016-12-13 10:43] LABS: CKMB 0.9 U/L (0.0-3.6); CREATINE KINASE 54 UL (21-232); TROPONIN-I < 0.017 ng/mL (0.000-0.060)
== END 2016-12-13 12:51 | disposition home or self-care (01) ==
LOC: D.ER 09:38
PROVIDERS: Family Medicine
DX: R42 Dizziness and giddiness (principal); G56.02 Carpal tunnel syndrome, left upper limb; R94.31 Abnormal electrocardiogram [ECG] [EKG]; F17.200 Nicotine dependence, unspecified, uncomplicated; I10 Essential (primary) hypertension

== ENCOUNTER → 2017-11-02 08:44 | Outpatient (CLI) | payer OTHER ==
[2016-09-29 10:51] VITALS: BMI 23.2
== END | disposition home or self-care (01) ==
LOC: D.MRI 08:44
DX: I65.23 Occlusion and stenosis of bilateral carotid arteries (principal)

== ENCOUNTER → 2019-03-25 10:11 | Outpatient (CLI) | payer MEDICARE ==
[2016-09-29 10:51] VITALS: BMI 23.2
== END | disposition home or self-care (01) ==
LOC: D.US 03-16 11:00
PROVIDERS: ATTEND Internal Medicine Cardiovascular Disease
DX: I65.22 Occlusion and stenosis of left carotid artery (principal)

== ENCOUNTER → 2020-09-04 15:33 | Outpatient (CLI) | payer MEDICARE ==
[2016-09-29 10:51] VITALS: BMI 23.2
[2020-09-04 16:22] LABS: EOSINOPHILS 3.5 % (0-7); HEMATOCRIT 35.9 % (42.0-54.0); HEMOGLOBIN 11.8 g/dL (13.5-17.5); IMMATURE GRANULOCYTES 0.2 % (0-5); LYMPHOCYTE ABS# 1.46 10x3/uL (1.32-3.57); LYMPHOCYTES 24.6 % (15-50); MCH 30.6 pg (26.0-34.0); MCHC 32.9 g/dL (31.0-37.0); MEAN PLATELET VOLUME 9.5 fL (7.4-10.4); MONOCYTES 9.9 % (2-11); NEUTROPHIL ABS# 3.61 10x3/uL (1.78-5.38); NEUTROPHILS 60.8 % (40-80); PLATELET COUNT 248 10x3/uL (130-400); RBC 3.86 10x6/uL (4.20-6.10); RDW 13.4 % (11.5-14.5); WBC 5.9 10x3/uL (4.8-10.8)
[2020-09-04 17:10] LABS: ALBUMIN 3.5 g/dL (3.4-5.0); ANION GAP 9.8 mmol/L (8-16); BILIRUBIN - TOTAL 0.32 mg/dL (0.2-1.3); CARBON DIOXIDE 29.5 mmol/L (21.0-32.0); CREATININE - SERUM 1.8 mg/dL (0.6-1.3); POTASSIUM - SERUM 4.3 mmol/L (3.5-5.1); PROTEIN - SERUM 6.7 g/dL (6.4-8.2); T4 THYROXIN - FREE 1.06 ng/dL (0.76-1.46); THYROID STIMULATING HORMONE 1.89 uIU/mL (0.36-3.74)
[2020-09-04 17:22] LABS: ERYTHROCYTE SEDIMENTATION RATE 4 mm/hr (0-20)
[2020-09-05 08:13] LABS: RAPID PLASMA REAGIN Non Reactive (Non Reactive)
[2020-09-05 10:12] LABS: ANA REFLEX - DBL STRANDED DNA <1 IU/mL (0-9); ANA REFLEX - DIRECT Negative (Negative); ANA REFLEX - SJOGRENS AB SSB <0.2 AI (0.0-0.9)
[2020-09-05 12:11] LABS: SPE - A/G RATIO 1.5 (0.7-1.7); SPE - ALBUMIN 3.9 g/dL (2.9-4.4); SPE - ALPHA-1 GLOBULIN 0.3 g/dL (0.0-0.4); SPE - ALPHA-2 GLOBULIN 0.7 g/dL (0.4-1.0); SPE - BETA GLOBULIN 0.9 g/dL (0.7-1.3); SPE - GAMMA GLOBULIN 0.8 g/dL (0.4-1.8); SPE - M-SPIKE Not Observed g/dL (Not Observed); SPE - TOTAL PROTEIN 6.5 g/dL (6.0-8.5)
== END | disposition home or self-care (01) ==
LOC: D.LAB 15:33
PROVIDERS: ATTEND Psychiatry & Neurology Neurology
DX: G60.9 Hereditary and idiopathic neuropathy, unspecified (principal)